=== PATIENT | female | born 1980 | race Caucasian/White ===

== ENCOUNTER 2018-01-11 14:30 | Outpatient (CLI) | payer OTHER ==
[~2018-01-11 14:30] MED LIST: METHOCARBAMOL500 MG PO; TIZANIDINE HCL2 MG PO
== END 2018-01-11 15:10 | disposition home or self-care (01) ==
LOC: TOM 14:30
DX: J32.4 Chronic pansinusitis (principal)

== ENCOUNTER 2018-04-15 12:50 | Outpatient (CLI) | payer OTHER | END 2018-04-15 12:53 | disposition home or self-care (01) | LOC: RAD 12:50 | DX: M54.2 Cervicalgia (principal) ==

== ENCOUNTER 2018-04-26 14:11 | Outpatient (CLI) | payer OTHER | END 2018-04-26 14:20 | disposition home or self-care (01) | LOC: MRI 14:11 | DX: M50.80 Other cervical disc disorders, unspecified cervical region (principal); M50.20 Other cervical disc displacement, unspecified cervical region | CPT/HCPCS: 72141 ==

== ENCOUNTER 2021-09-28 09:45 | Outpatient (CLI) | payer OTHER | END 2021-09-28 09:48 | disposition home or self-care (01) | LOC: SONOGRAMA 09:45 | PROVIDERS: ATTEND Physical Medicine & Rehabilitation | DX: M75.82 Other shoulder lesions, left shoulder (principal) ==